=== PATIENT | female | born 1980 | race Caucasian/White ===

== ENCOUNTER 2016-07-03 17:52 | Emergency (ER) | payer SELFPAY ==
[~2016-07-03] VITALS: Ht 167.6 cm; Wt 96.2 kg
[~2016-07-03 17:52] MED LIST: BENADRYL50 MG PO; DILAUDID2 MG PO; FLEXERIL10 MG PO; FLEXERIL5 MG PO; MOTRIN600 MG PO; MOTRIN800 MG PO; NAPROSYN500 MG PO; NORCO 7.5/321 TABLET PO; PHENTERMINE HCL30 MG PO; PREDNISONE10 M1 PO; TRAMADOL HCL50 MG PO; TRAZODONE HCL50 MG PO; TYLENOL WITH C1 EACH PO; ULTRAM50 MG PO; WELLBUTRIN75 MG PO
[2016-07-03] MEDS ORDERED: CLEOCIN300 MG PO (18:06)
[2016-07-03] MEDS ORDERED: NAPROSYN500 MG PO (18:06)
[2016-07-03 18:42] VITALS: BP 128/96
== END 2016-07-03 18:42 | disposition home or self-care (01) ==
LOC: EME 17:52
DX: K08.89 Other specified disorders of teeth and supporting structures (principal); F17.200 Nicotine dependence, unspecified, uncomplicated; Z88.0 Allergy status to penicillin
CPT/HCPCS: 99281; 99283